=== PATIENT | male | born 1975 | race Caucasian/White ===

== ENCOUNTER 2019-02-23 23:05 | Observation (INO) | payer BC, SELFPAY ==
--- NOTE | 2019-02-23 23:46 | PDOC.FPRHP ---
- History of Present Illness Chief Complaint: Chest Pain History of Present Illness: Artem Hagen is a 43 y/o male with a PMH significant for DM2 who presents to the ED from an outside hospital following an episode of chest pain. The patient states that he was riding in the car with his when he suddently felt a sharp, left-sided chest pain that radiated down his arm. He noted that the pain was not relieved with position or gentle massage. Per the patient's , he "slumped over" because he was in so much pain. The patient denied any associated symptoms such as N/V or feeling cool or clammy, but did admit to feelings of light headedness and blurry vision. He denied any recent illness, sick contacts, recent travel, cough, congestion, rhinorrhea, ABD pain, hematuria or bloody stools. ED Course: While in the ED at an outside facility, Mr. Hagen received an EKG that showed mild ST-Segment elevation in the inferior and lateral leads on multiple readings. Dr. Rachel (Cardiology) was consulted by the ED physician, who recommend transfer to [facility] for a higher level of care. He was given 1 dose of Nitro and Heparin 7000 U. Initial Troponin and BNP values were negative, and the patient's chest pain resolved spontaneously within 30 minutes. CXR was reported as negative. - Allergies/Adverse Reactions Allergies Allergy/AdvReac Type Severity Reaction Status Date / Time cephalexin [From Keflex] Allergy Verified 02/24/19 12:10 Penicillins Allergy Verified 02/24/19 12:10 - Home Medications Medication Instructions Recorded Confirmed Type Glyburide/Metformin HCl 1 tablet PO BID- 02/24/19 02/24/19 History [glyBURIDE/metFORMIN] Lisinopril 5 mg PO DAILY 02/24/19 02/24/19 History Rosuvastatin [Crestor] 20 mg PO DAILY 02/24/19 02/24/19 History - History PMHx: DM2 PSHx: Multiple Knee Surgeries, Cholecystectomy, Hernia Repair FHx: Mother (HTN), Paternal Grandfather (CAD, OR < 55) Social: Denies tobacco, EtOH and street drug abuse. Previously worked as a elevator mechanic, currently works in administration. Code: Full - Review of Systems General: reports: fatigue. denies: fever/chills, weight/appetite/sleep changes Eyes: reports: vision changes ENT: denies: nasal congestion, rhinorrhea Respiratory: denies: cough, congestion, shortness of breath, exercise intolerance Cardiovascular: reports: chest pain. denies: palpitation, edema, paroxysmal nocturnal dyspnea Gastrointestinal: denies: nausea, vomiting, diarrhea, constipation, abdominal pain, GI bleeding Genitourinary: denies: dysuria Skin: denies: rashes, lesions Musculoskeletal: denies: pain, tenderness, swelling Neurological: denies: syncope - Vital signs BP: [125/73] HR: [92] RR: [18] Tmax: [97.5] Pox: [95]% on [Room Air] Wt: [102 kg] - Physical Exam Constitutional: NAD, awake, alert and oriented, well developed HEENT: normocephalic and atraumatic, PERRLA, EOMI, conjunctiva clear, no scleral icterus, grossly normal vision, grossly normal hearing, normal nasal mucosa, MMM, oropharynx clear, good dention Neck: supple, FROM, trachea midline, no LAD, no JVD, no bruits Chest: no-tender to palpation, no lesions -Chest: Pain reproducible with deep inspiration. Heart: RRR, normal S1/S2, no murmurs/rubs/gallops, pulses present, no edema Lungs: CTAB, no respiratory distress, good air movement, no rales/rhonchi, no wheezing, no retractions Abdomen: soft, non-tender, bowel sounds present, no masses/distention, no hernias Musculoskeletal: normal structure, ROM grossly normal Neurological: no focal deficit Skin: no rash/lesions, no jaundice Heme/Lymphatic: no unusual bruising or bleeding, no purpura, no petechia Psychiatric: normal mood and affect, good judgment and insight, intact recent and remote memory FMR H&P: Results - Labs Result Diagrams: 02/24/19 03:36 02/24/19 03:36 - EKG Interpretation EKG: Minimal ST-Segment elevation in inferior and lateral leads. - Radiology Interpretation Chest x-ray Status: image reviewed by me (SHY) FMR H&P: A/P - Problem List (1) Diabetes Current Visit: Yes Status: Acute Code(s): E11.9 - TYPE 2 DIABETES MELLITUS WITHOUT COMPLICATIONS (2) Atypical chest pain Current Visit: Yes Status: Acute Code(s): R07.89 - OTHER CHEST PAIN - Plan 43 y/o male with a PMH of DM2 currently admitted to ER Hold for evaluation of atypical chest pain. 1. Atypical Chest Pain -Sharp chest pain w/ radiation to left arm, not associated with physical activity or relieved with rest or Nitro - reproducible with deep inspiration -EKG: Suspicious for mild ST-Segment elevation in inferior and lateral leads on multiple reads -Troponins: < 0.01 x2 -BNP: < 10 -TSH: 2.89 -M.7 / Phos: 3.6 -Fasting Lipid Panel: Pending -CXR: NAF -Heart Score: 3 (Low Risk) -ASA 325 - will restart home Lisinopril and Rosuvastatin -Currently NPO - plan for NM Stress Test in AM 2. DM2 -Glucose: 379 on 02/23/19 -Keep Patient NPO pending NM Stress Test -Will restart home Metformin - plan to hold Glyburide based on hypoglycemia risk -AccuChecks Q4H PCP: CC Code: Full Diet: NPO @ 0001 Activity: Ad Lula VTE PPx: SCDs Dispo: Patient currently stable in ED Hold with pending transfer to Telemetry Floor for observation. Will plan for NM Stress Test and Fasting Lipid Panel for further risk stratification. Expected LOS < 24H. FMR H&P: Upper Level - Pertinent history 43 y/o M PMHx DM2 presented to [facility] ED for chest pain. He reports the chest pain was left sided, sharp pain that started at 2130 today and lasted about 30 minutes. By the time he got to the ED it had resolved. He denies any diaphoresis, nausea. He does reports a little shortness of breath during the episode. He was just sitting in the car at the time with no exacerbating or alleviating factors. He denies any prior h/o chest pain. Denies tobacco, EtOH, or drug use. Reports his diabetes is well controlled. In the [facility] ED he was given 7000U bolus heparin, 324 ASA, 1LNS, 1SL Nitro, 15MG toradol - Pertinent findings BP: 118/77, MAP: 90, Pulse: 81, Resp: 20, Temp: 98.0 (Oral), O2 sat: 96 on ( Room Air) PE: Gen - alert, oriented, NAD Chest - NTTP CV - RRR, no murmurs Lungs - CTAB, no wheezes Abd - soft, NTTP, normoactive bowel sounds Ext - no edema Labs: Trop < 0.010, Cr 1.0, BNP < 10 CXR: No acute process EKG: mild ST elevation in inferior leads - Plan Date/Time: 02/23/19 [id number] I, Marisa Khanna MD, PGY-3, have evaluated this patient and agree with findings/ plan as outlined by spring intern resident. Pertinent changes/additions are listed here. 1. Atypical chest pain Pt with single episode of sharp left sided chest pain that resolved on its own. Heart score 3. Pt s/p aspirin, nitro, heparin. Dr. Rachel was consulted from [facility] ED due to EKG changes. He recommended admission. The EKG was unchanged on arrival to our ED. -Obs on tele -Trend troponin -NPO and stress test in AM -Repeat EKG and trop for any new or worsening chest pain -Fasting lipid panel 2. DM2 Pt on glyburide and metformin at home -Accuchecks ACHS -Hold home meds while NPO due to risk for hypoglycemia, resume once eating Dispo: Obs on tele LOS: Likely less than 48 hours Diet: NPO Code Status: Full Addendum - Attending - Attending Attestation Date/Time: 02/24/19 [id number] I personally evaluated the patient and discussed the management with the team. I agree with the History, Examination, Assessment and Plan documented above with any addition or exceptions noted below. Await stress test. Discussed with cards who agree.
[2019-02-24 01:12] LABS: Magnesium 1.7 mg/dL (1.6-2.6); Phosphorus 3.6 mg/dL (2.3-4.7)
[2019-02-24 01:17] LABS: Troponin I Less than 0.010 ng/mL (< 0.028)
[2019-02-24] MEDS ORDERED: Acetaminophen 325 MG TAB PO PRN (03:07)
[2019-02-24] MEDS ORDERED: Nitroglycerin 0.4 MG TAB (25 Tab Bottle) PO PRN (03:07)
[2019-02-24] MEDS ORDERED: Ondansetron ODT 4 MG TAB PO PRN (03:07)
[2019-02-24 03:46] LABS: #Eosinphils 0.2 thou/uL (0.0-0.7); #Monocytes 0.4 thou/uL (0.11-0.59); #Neutrophils 2.9 thou/uL (1.40-6.50); %Basophils 0.7 % (0.0-1.0); %Eosinophils 3.4 % (0.0-10.0); %Lymphocytes 45.8 % (21.0-51.0); %Monocytes 5.8 % (0.0-10.0); %Neutrophils 44.3 % (42.0-75.0); Hemoglobin 14.8 g/dL (14.0-18.0); Mean Corpuscular HGB CONC 34.8 g/dL (32.0-36.0); Mean Corpuscular Hemoglobin 30.5 pg (27.0-31.0); Mean Corpuscular Volume 87.7 fL (78.0-98.0); Mean Platelet Volume 7.1 fL (7.4-10.4); Platelet Count 224 thou/uL (130-400); RBC Distribution Width 11.9 % (11.5-14.5); Red Blood Cell (RBC) Count 4.85 mill/uL (4.70-6.10); White Blood Cell (WBC) Count 6.5 thou/uL (4.8-10.8)
[2019-02-24 04:11] LABS: ALT (SGPT) 36 U/L (8-55); AST (SGOT) 21 U/L (5-34); Albumin 3.7 g/dL (3.5-5.0); Alkaline Phosphatase 64 U/L (40-110); Anion Gap 12 mmol/L (10-20); BUN (Urea Nitrogen) 15 mg/dL (8.9-20.6); Bilirubin, Total 0.5 mg/dL (0.2-1.2); Calc. Creatinine Clearance 0 mL/min (70-130); Calcium 8.8 mg/dL (7.8-10.44); Carbon Dioxide 24 mmol/L (22-29); Cardiac Risk 5.2 (Less than 4.5); Chloride 107 mmol/L (98-107); Cholesterol 135 mg/dl (< 200 Desired); Estimated GFR-MDRD 87; Globulin 2.6 g/dL (2.4-3.5); Glucose 255 mg/dL (70-105); HDL Cholesterol 26 mg/dL (>60 Neg Risk); LDL Cholesterol, Calculated 73 mg/dL; Protein, Total 6.3 g/dL (6.0-8.3); Sodium 139 mmol/L (136-145); Triglycerides 179 mg/dL (Less than 150)
[2019-02-24 04:16] LABS: Troponin I Less than 0.010 ng/mL (< 0.028)
[2019-02-24] MEDS ORDERED: Lisinopril 5 MG TAB PO SCH (09:00)
[2019-02-24] MEDS ORDERED: Famotidine 20 MG TAB PO SCH (09:00)
[2019-02-24] MEDS ORDERED: Rosuvastatin 20 MG TAB PO SCH (09:00)
[2019-02-24] MEDS ORDERED: Lisinopril 10 MG TAB PO SCH (09:00)
[2019-02-24] MEDS ORDERED: Aspirin 325 mg Enteric Coated Tablet PO SCH (09:00)
[2019-02-24] MEDS: metFORMIN 500 MG TAB PO SCH ×2 (10:23→16:43)
--- NOTE | 2019-02-24 11:56 | NM ---
EXAM: CARDIAC SPECT HISTORY: Chest pain TECHNIQUE: A myocardial perfusion scan was performed using the single isotope 1 day protocol with mayte hnetium 99m sestamibi. [10 mCi] was injected intravenously for the rest exam followed by 30 mCi for the stress study. Pharmacologic stress with Lexiscan was monitored and interpreted by Dr. Lorenzo FINDINGS: Homogeneous tracer distribution is seen in the myocardial segments on stress and rest image s without fixed or reversible defects. Gated SPECT LVEF: 62% Wall motion exam: Normal IMPRESSION: Normal myocardial perfusion scan
[2019-02-24 12:06] VITALS: BMI 32.2
[2019-02-24] MEDS ORDERED: Regadenoson 0.4 MG/5 ML SYRINGE ONE (15:27)
--- NOTE | 2019-02-24 15:51 | CON ---
DATE OF CONSULTATION: 02/24/2019 REASON FOR CONSULTATION: Chest pain. HISTORY OF PRESENT ILLNESS: Mr. Hagen is a very pleasant 43-year-old white gentleman, who comes to the hospital for chest pain. He states yesterday he had a sudden onset of chest tightness that radiated to the left arm. He states that leaning on his back, lying down on his back, made things worse, sitting up made things better. The pain lasted for about 45 minutes. He decided to come in for further evaluation. Troponins were negative and a stress test was performed. Cardiology has been consulted for an abnormal EKG. Currently, Mr. Hagen is pain free. He states that the pain only got better after he got into the ER and he received a dose of Toradol. Currently, his pain is coming back as he has not received any NSAIDs since last night. PAST MEDICAL HISTORY: 1. Type 2 diabetes. 2. Hypertension. 3. Hyperlipidemia. SURGICAL HISTORY: 1. Multiple knee surgery. 2. Cholecystectomy. 3. Hernia repair. FAMILY HISTORY: Mother with high blood pressure. Paternal grandfather with an DE in his 50s. SOCIAL HISTORY: No alcohol, tobacco, or drugs. 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 REVIEW OF SYSTEMS: A 12-point review of systems was done and was all negative unless stated in the history of present illness. OUTPATIENT MEDICATIONS: 1. Glyburide metformin b.i.d. 2. Lisinopril. 3. Rosuvastatin 20 mg a day. ALLERGIES: PENICILLIN AND CEPHALEXIN. PHYSICAL EXAMINATION: VITAL SIGNS: Temperature 97.7, pulse 76, respiratory rate 18, sat 97% on room air, blood pressure 135/80. GENERAL: Awake, alert, oriented x3. No distress. HEENT: Normocephalic , atraumatic. NECK: Supple. LUNGS: Clear. CARDIOVASCULAR: S1, S2. No S3 or S4. No murmurs. ABDOMEN: Soft. Positive bowel sounds. EXTREMITIES: No edema. SKIN: Warm and dry. LABORATORY DATA: Laboratory work was reviewed. His CBC was unremarkable. His chemistry was unremarkable except for a glucose of 255. Troponins were undetectable x2. TSH was normal. Cholesterol total was 135, LDL was 73, HDL 26, and triglycerides of 179. EKG was reviewed. He has ST elevation on D1, D2, D3 as well as some of the precordial leads consistent with acute pericarditis. ASSESSMENT: 1. Chest pain. 2. Acute pericarditis. 3. Hypertension. 4. Diabetes. PLAN: 1. He had an episode of diarrhea about 3 weeks ago, which can be his primary viral disease that provoked this pericarditis. We will plan on starting him on indomethacin 25 mg twice a day. We will re-evaluate in 1 month. If he has recurrence of his pain, we may still recommend a heart catheterization, but at this point, more than likely the indomethacin will suffice. He feels much better after he was given one dose of Toradol. 2. May discharge home. His stress test was completely normal with normal LV function. Thank you for letting us to participate in the care of your patient. We will sign off. Please call with any questions. Plan on seeing the patient back in the office in 1 month. Job ID: [id number] MTDD
[2019-02-24 16:02] VITALS: BP 121/74; TEMP 98.3
[2019-02-24] MEDS ORDERED: Indomethacin 25 mg Capsule PO SCH (21:00)
--- NOTE | 2019-02-25 13:34 | DIS ---
DATE OF ADMISSION: 02/24/2019 DATE OF DISCHARGE: 02/24/2019 RESIDENT: Dane Duradn MD ADMITTING ATTENDING: Rodger Joshi MD DISCHARGE ATTENDING: Rodger Joshi MD CONSULTS: Cardiology on 02/24/2019. The patient has pericarditis. We will start him on indomethacin 25 mg twice a day and re-evaluate in 1 month. If he has recurrent pain, recommend heart cath but at this point, indomethacin will suffice. He felt better after given a dose of Toradol. Stress was normal with normal left ventricular function. PROCEDURES: Stress test on 02/24/2019, showed left ventricular ejection fraction of 62% with normal myocardial perfusion scan. PRIMARY DIAGNOSIS: Pericarditis. SECONDARY DIAGNOSIS: Type 2 diabetes. DISCHARGE MEDICATIONS: Indomethacin 25 mg b.i.d. Resume home medications. DISCONTINUED MEDICATIONS: Aspirin. HISTORY OF PRESENT ILLNESS: The patient is a 43-year-old male with a past medical history significant for diabetes, type 2, who presents to the ED from an outside hospital following an episode of chest pain. The patient states that he was riding in the car with his , and he suddenly felt a sharp left-sided chest pain that radiated down his arm. He noted that the pain was not relieved by position or to any massage per the patient's . 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 The patient denies any associated symptoms such as nausea, vomiting, or feeling cold or clammy but did admit to feelings of lightheadedness and blurry vision. He denied any recent illness, sick contacts, recent travel, cough, congestion, rhinorrhea, abdominal pain, hematuria, or bloody stools. On the ED at the outside facility, Mr. Hagen received an EKG that had showed mild ST-segment elevation in the inferior and lateral leads on multiple readings. Dr. Rachel was consulted by the ED physician, who recommended transfer to [facility] for a higher level of care. He was given one dose of nitroglycerin and heparin 7000 units. Initial troponins and BNP values were negative, and the patient's chest pain resolved spontaneously within 30 minutes. Chest x-ray was reported as negative. Atypical chest pain. * Sharp chest pain with radiation to left arm, not associated with physical activity, relieved by rest or nitroglycerin. Reproducible with deep inspiration. * EKG suspicious for mild ST-segment elevation, however. * Cardiology consult, indeterminate of pericarditis. * Troponins negative x2. * BNP less than 10. * TSH normal as well as Mag and phos. * Fasting lipid panel normal. * Chest x-ray, no acute findings. * Heart score 3. * Aspirin was given. Lisinopril and rosuvastatin, home medications were restarted. Diabetes, type 2. * Glucose 379 on admission. * We will restart home metformin and have Accu-Cheks. DISPOSITION: Stable. DISCHARGE LOCATION: Home. DIET: Diabetic, heart healthy, low-sodium. ACTIVITY: As tolerated. FOLLOWUP: 1. Follow up with Dr. Lorenzo in 1 month. 2. Follow up with his PCP in 7 days. Job ID: [id number] ITZEL
== END 2019-02-24 16:43 | disposition home or self-care (01) ==
LOC: ERS 23:05 → ERHOLD 02-24 00:17 → 2SW 02-24 12:13
PROVIDERS: ADMIT Student in an Organized Health Care Education/Training Program; ATTEND Student in an Organized Health Care Education/Training Program
DX: I30.9 Acute pericarditis, unspecified (principal); I10 Essential (primary) hypertension; E11.9 Type 2 diabetes mellitus without complications; E78.5 Hyperlipidemia, unspecified; Z79.84 Long term (current) use of oral hypoglycemic drugs; Z79.899 Other long term (current) drug therapy; Z88.0 Allergy status to penicillin; Z88.1 Allergy status to other antibiotic agents
CPT/HCPCS: 36415; 36416; 78452; 80053; 80061; 83735; 84100; 84443; 84484; 85025; 93005; 93017; 94760; A9500; G0378; J2785